=== PATIENT | male | born 1990 | race Caucasian/White ===

== ENCOUNTER 2016-12-06 17:13 | Emergency (ER) | payer OTHER ==
[2016-12-06 17:22] VITALS: BP 127/83; PULSE 103; TEMP 98.4; BMI 39.7
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
== END 2016-12-06 21:16 | disposition home or self-care (01) ==
LOC: JERFT 17:13
DX: S89.92XA Unspecified injury of left lower leg, initial encounter (principal); W03.XXXA Other fall on same level due to collision with another person, initial encounter; W50.1XXA Accidental kick by another person, initial encounter; Y93.F9 Activity, other caregiving; Y92.118 Other place in children's home and orphanage as the place of occurrence of the external cause; Y99.0 Civilian activity done for income or pay
CPT/HCPCS: 73562-TC-LT; 99281-25

== ENCOUNTER 2017-11-27 16:20 | Emergency (ER) | payer OTHER ==
[2017-11-27 16:25] VITALS: BP 133/80; PULSE 97; TEMP 98.3; BMI 40.4
--- NOTE | 2017-11-27 17:40 | PDOC ---
History of Present Illness - General Chief Complaint: Injury Stated Complaint: LEFT FINGER INJURY Time Seen by Provider: 11/27/17 16:56 History Source: Patient Exam Limitations: No Limitations - History of Present Illness Initial Comments: 11/27/17 17:39 HISTORY OF PRESENT ILLNESS: This is a 27-year-old diabetic who presents emergency departments with swelling to his left index finger for the past 4 days. Patient states 4 days ago was closing a metal door when a piece of metal on the door scraped his finger. Since that time his fingers gotten progressively reddened and swollen. Patient reports it hurts when he touches it. He denies any fever, chills, redness or streaking of the hand. Last . No recent travel or sick contacts. PAST MEDICAL HISTORY: NIDDM SURGICAL HISTORY: Denies ALLERGIES: No known drug allergies REVIEW OF SYSTEMS General/Constitutional: Denies fever or chills. Denies weakness, weight change. HEENT: Denies change in vision. Denies ear pain or discharge. Denies sore throat. Cardiovascular: Denies chest pain or shortness of breath. Respiratory: Denies cough, wheezing, or hemoptysis. Gastrointestinal: Denies nausea, vomiting, diarrhea or constipation. Denies rectal bleeding. Genitourinary: Denies dysuria, frequency, or change in urination. Musculoskeletal: Left index finger pain and swelling. Skin and breasts: Denies rash or easy bruising. Neurologic: Denies headache, vertigo, loss of consciousness, or loss of sensation. Psychiatric: Denies depression or anxiety. Endocrine: Denies increased thirst. Denies abnormal weight change. Hematologic/Lymphatic: Denies anemia, easy bleeding, or history of blood clots. Allergic/Immunologic: Denies hives or skin allergy. Denies latex allergy. PHYSICAL EXAM General Appearance: Well-appearing, appropriately dressed. No apparent distress , no intoxication. HEENT: EOMI, PERRLA, normal ENT inspection, normal voice, TMs normal, pharynx normal. No conjunctival pallor. No photophobia, scleral icterus. Neck: Supple. Trachea midline. No tenderness, rigidity, carotid bruit, stridor , lymphadenopathy, or thyromegaly. Respiratory/Chest: Lungs CTAB. No shortness of breath, chest tenderness, respiratory distress, accessory muscle use. No crackles, rales, rhonchi, stridor , wheezing, dullness Cardiovascular: RRR. S1, S2. No JVD, murmur, bradycardia, tachycardia. Vascular Pulses: Dorsalis-Pedis (R): 2+, Dorsalis-Pedis (L): 2+ Gastrointestinal/Abdominal: Normal bowel sounds. Abdomen soft, non-distended. No tenderness or rebound tenderness. No organomegaly, pulsatile mass, guarding, hernia, hepatomegaly, splenomegaly. Lymphatic: No adenopathy, tenderness. Musculoskeletal/Extremities: Normal inspection. FROM of all extremities, normal capillary refill. Pelvis Stable. No CVA tenderness. No tenderness to extremities, pedal edema, swelling, erythema or deformity. Integumentary: Erythema, tenderness and swelling noted to the medial cuticle of the left index finger. Fluctuance present. Neurologic: customer support executive II-XII intact. Fully oriented, alert. Appropriate mood/affect. Motor strength 5/5. No appreciable EOM palsy, facial droop or sensory deficit. Past History - Past Medical History Allergies/Adverse Reactions: Allergies Allergy/AdvReac Type Severity Reaction Status Date / Time No Known Allergies Allergy Verified 11/27/17 16:25 Home Medications: Ambulatory Orders metFORMIN HCL [Glucophage -] 500 mg PO BID 11/29/13 Cephalexin Monohydrate [Keflex -] 500 mg PO Q6H #28 capsule 11/27/17 Sulfamethoxazole/Trimethoprim [Bactrim Ds -] 1 tab PO BID #14 tablet 11/27/17 COPD: No Diabetes: Yes - Suicide/Smoking/Psychosocial Hx Smoking History: Never smoked Hx Alcohol Use: No Drug/Substance Use Hx: No Substance Use Type: None *Physical Exam - Vital Signs Last Vital Signs Temp Pulse Resp BP Pulse Ox 98.3 F 97 H 18 133/80 99 11/27/17 16:23 11/27/17 16:23 11/27/17 16:23 11/27/17 16:23 11/27/17 16:23 Procedures - Consent Consent obtained: Verbal, From Patient - Incision and Drainage I&D Site: Left: Paronychia (index finger) Betadine cleansed: Yes Anesthesia: 1% Lidocaine Volume(ml): 2 Blade Size: 11 Attempts: 1 Plain Packing: No Complications: none Dressing: No Progress: 11/27/17 18:14 pt tolerated well. Medical Decision Making - Medical Decision Making 11/27/17 17:45 A/P: 27-year-old diabetic male with paronychia of the left index finger Warm soaks with Betadine I&D Discharge home on antibiotics *DC/Admit/Observation/Transfer Diagnosis at time of Disposition: Paronychia of finger Qualifiers: Laterality: left Qualified Code(s): L03.012 - Cellulitis of left finger - Discharge Dispostion Condition at time of disposition: Stable Decision to Admit order: No - Prescriptions Prescriptions: Cephalexin Monohydrate [Keflex -] 500 mg PO Q6H #28 capsule Sulfamethoxazole/Trimethoprim [Bactrim Ds -] 1 tab PO BID #14 tablet - Referrals - Patient Instructions Additional Instructions: Take Keflex 500 mg 4 times a day for the next 7 days Take Bactrim DS one tablet twice a day for the next 7 days Finish all antibiotics even if you feel better. Apply warm compresses to your finger as needed. Return to emergency department for any worsening pain, drainage, hearing loss, or any other concerns. Thank you very much for choosing us to provide your emergent health care needs. - Post Discharge Activity
[2017-11-27] MEDS ORDERED: LIDOCAINE HCL/PF 1% SDV 5ML VIAL ONE (18:02)
== END 2017-11-27 18:54 | disposition home or self-care (01) ==
LOC: JERFT 16:20
PROC: 0J9K0ZZ Drainage of Left Hand Subcutaneous Tissue and Fascia, Open Approach (ICD-10-PCS; principal; 2017-11-27)
DX: L03.012 Cellulitis of left finger (principal)
CPT/HCPCS: 99281-25